=== PATIENT | male | born 1960 | race Two or more races ===

== ENCOUNTER 2017-02-24 17:34 | Emergency (ER) | payer SELFPAY ==
[2017-02-24] MEDS ORDERED: MORPHINE SULFATE 4 MG/ML, 1ML ONE (18:18)
[2017-02-24] MEDS ORDERED: ONDANSETRON 2MG/ML, 2ML ONE (18:18)
[2017-02-24] MEDS ORDERED: OMNIPAQUE 350 MG/ML, 100ML BOTTLE ONE (20:30)
[2017-02-24] MEDS ORDERED: MAALOX/HYOSCYAMINE/LIDOCAINE 45 ML BOTTLE ONE ×2 (21:04→22:35)
[2017-02-26 13:41] LABS: ASPARTATE AMINO TRANSFERASE 11 U/L (15-37); BLOOD UREA NITROGEN 14 mg/dL (7-18)
[2017-02-26 14:06] LABS: IS PT STATUS REG ER OR PRE ER? YES
== END 2017-02-24 22:50 | disposition home or self-care (01) ==
LOC: ED 17:34
DX: K25.3 Acute gastric ulcer without hemorrhage or perforation (principal); B96.81 Helicobacter pylori [H. pylori] as the cause of diseases classified elsewhere; E11.9 Type 2 diabetes mellitus without complications
CPT/HCPCS: 36415; 74177; 80048; 80076; 81003; 82040; 82150; 83690; 84484; 85025; 86677; 99285; Q9967